=== PATIENT | female | born 1990 | race Two or more races ===

== ENCOUNTER 2021-05-28 20:26 | Emergency (ER) | payer OTHER ==
[~2021-05-28] VITALS: Ht 170.2 cm; Wt 54.4 kg
== END 2021-05-28 23:51 | disposition home or self-care (01) ==
LOC: ER 20:26
DX: S01.82XA Laceration with foreign body of other part of head, initial encounter (principal); W45.8XXA Other foreign body or object entering through skin, initial encounter; Y93.89 Activity, other specified; Y92.89 Other specified places as the place of occurrence of the external cause; Y99.8 Other external cause status